=== PATIENT | female | born 1930 | race Two or more races ===

== ENCOUNTER 2019-09-03 10:01 | Inpatient (IN) | payer MEDICARE, OTHER ==
[~2019-09-03] VITALS: Ht 162.6 cm; Wt 91.8 kg
[2019-09-03] MEDS ORDERED: FentaNYL CITRATE-PF 100 MCG/2 ML VIAL ONE (10:30)
[2019-09-03] MEDS ORDERED: SODIUM CHLORIDE 0.9% 2,200 ML IV ONE (10:34)
[2019-09-03] MEDS ORDERED: 0.9% SODIUM CHLORIDE 10 ML SYRINGE IVP PRN ×2 (10:45→12:15)
[2019-09-03] MEDS ORDERED: DOXYCYCLINE HYCLATE 100 MG in DEXTROSE 5%-WATER 100 ML IV ONE (10:45)
[2019-09-03] MEDS ORDERED: VANCOMYCIN HCL 1 GM/D5% WATER 200 ML IV ONE (11:00)
[2019-09-03] MEDS ORDERED: PIPERACILLIN/TAZO 3.375 GM/D5W 50 ML IV ONE ×2 (11:00→22:00)
[2019-09-03 11:01] LABS: BASOPHILS % (AUTO) 0.2 % (0.0-2.0); EOSINOPHILS % (AUTO) 0 % (1.0-6.0); HEMATOCRIT 38.7 % (36-46); HEMOGLOBIN 12.8 g/dL (12.0-16.0); LYMPHOCYTES # (AUTO) 3.1 K/uL (1.0-4.8); LYMPHOCYTES % (AUTO) 21.3 % (22.0-44.0); MEAN CORPUSCULAR HEMOGLOBIN 29.2 pg (26.0-34.0); MEAN CORPUSCULAR VOLUME 89 fL (80-100); MONOCYTES # (AUTO) 0.6 K/uL (0.1-1.0); MONOCYTES % (AUTO) 4.1 % (2.0-9.0); NEUTROPHILS % (AUTO) 74.4 % (40.0-70.0); PLATELET COUNT (AUTO) 348 K/uL (150-450); RED BLOOD CELL COUNT(AUTO) 4.37 MIL/uL (4.00-5.20); RED CELL DISTRIBUTION WIDTH 16.1 % (11.5-14.5)
[2019-09-03 11:18] LABS: LACTIC ACID 1.5 mmol/L (0.4-2.0)
[2019-09-03] MEDS ORDERED: ASPIRIN 600 MG RECTAL SUPPOSITORY PR ONE (11:30)
[2019-09-03 11:34] LABS: INR 1.1 (0.9-1.1)
[2019-09-03 11:35] LABS: ALANINE AMINOTRANSFERASE 28 U/L (12-78); ALBUMIN 2.5 g/dL (3.4-5.0); ALKALINE PHOSPHATASE 80 U/L (46-116); ANION GAP 6 mmol/L (8-16); ASPARTATE AMINOTRANSFERASE 35 U/L (15-37); BILIRUBIN,TOTAL 0.5 mg/dL (0.1-1.0); CALCIUM, TOTAL 8.7 mg/dL (8.8-10.5); CARBON DIOXIDE 33 mmol/L (22-29); CHLORIDE 98 mmol/L (98-107); CREATINE KINASE, TOTAL ONLY 174 U/L (26-192); CREATININE 0.81 mg/dL (0.60-1.30); GLUCOSE,RANDOM 213 mg/dL (70-110); SODIUM SERUM 137 mmol/L (136-145); TOTAL PROTEIN, SERUM 7.5 g/dL (6.4-8.2); UREA NITROGEN, BLOOD 27 mg/dL (7-18)
[2019-09-03 11:37] LABS: B-TYPE NATRIURETIC PEPTIDE 608 pg/mL (0-100)
[2019-09-03 11:38] LABS: GLOMERULAR FILTR. RATE CALC > 60 mL/min (>60); POTASSIUM 2.3 mmol/L (3.5-5.1)
[2019-09-03] MEDS ORDERED: POTASSIUM CHLORIDE 20 MEQ ER TABLET PO PRN (11:45)
[2019-09-03 11:56] LABS: ABG A-A DIFF O2 390.4 mmHg (10-20.0); ABG BASE EXCESS -0.8 mmol/L (-2.0-3.0); ABG CARBOXYHEMOGLOBIN 0.6 % (0.0-1.5); ABG HCO3 22.5 mmol/L (22.0-26.0); ABG METHEMOGLOBIN 0.3 % (0.0-1.5); ABG OXYGEN SATURATION 99.4 % (95.0-98.0); ABG OXYHEMOGLOBIN 98.5 % (94.0-100.0); ABG TOTAL HEMOGLOBIN 12.6 G/dL (12.0-18.0); PO2, ARTERIAL BG 246.2 mmHg (71.0-79.0); SOURCE, BLOOD GAS ARTERIAL; TEMPERATURE, FAHRENHEIT, BG 98.6 FAHREN (96.0-98.6)
[2019-09-03 11:57] LABS: ABG PCO2 76 mmHg (35-45); ABG PH 7.176 (7.35-7.450); O2 DEVICE,BLOOD GAS VENTILATOR (ROOM AIR); PEEP,BG 8 cm H2O; SITE, BLOOD GAS LFT RADIAL; VT, ABG 450 ml
[2019-09-03 11:58] LABS: SPONTANEOUS VT, BG 444 ml
[2019-09-03] MEDS: FentaNYL CITRATE PF 500 MCG in DEXTROSE 5%-WATER 90 ML IV PRN ×2 (12:13→23:17)
[2019-09-03] MEDS ORDERED: ACETAMINOPHEN 325 MG TABLET PO PRN (12:15)
[2019-09-03] MEDS ORDERED: ONDANSETRON HCL 4 MG/2 ML VIAL IVP PRN (12:15)
[2019-09-03] MEDS ORDERED: SODIUM CHLORIDE 0.9% 250 ML IV ONE (13:23)
[2019-09-03 13:34] LABS: APPEARANCE,URINE CLOUDY (CLEAR); BILIRUBIN,URINE NEGATIVE (NEGATIVE); GLUCOSE, URINE (UA) NEGATIVE (NEGATIVE); KETONES,URINE NEGATIVE (NEGATIVE); LEUKOCYTE ESTERASE ,URINE LARGE (NEGATIVE); NITRATE,URINE NEGATIVE (NEGATIVE); OCCULT BLOOD,URINE LARGE (NEGATIVE); PROTEIN,URINE SEE CONFIRM (NEGATIVE)
[2019-09-03] MEDS: POTASSIUM CHL 10 MEQ/WATER 50 ML IV PRN ×7 (13:38→23:31)
[2019-09-03 13:40] LABS: ABG A-A DIFF O2 368.9 mmHg (10-20.0); ABG BASE EXCESS 0.4 mmol/L (-2.0-3.0); ABG HCO3 23.6 mmol/L (22.0-26.0); ABG OXYGEN CONTENT 16.7 mL/dL (15.0-23.0); ABG OXYGEN SATURATION 90.1 % (95.0-98.0); ABG OXYHEMOGLOBIN 89.2 % (94.0-100.0); ABG PCO2 62 mmHg (35-45); ABG PH 7.263 (7.35-7.450); ABG TOTAL HEMOGLOBIN 13.3 G/dL (12.0-18.0); O2 DEVICE,BLOOD GAS VENTILATOR (ROOM AIR); PEEP,BG 5 cm H2O; PO2, ARTERIAL BG 63.8 mmHg (71.0-79.0); SITE, BLOOD GAS RT RADIAL; SOURCE, BLOOD GAS ARTERIAL; TEMPERATURE, FAHRENHEIT, BG 98.3 FAHREN (96.0-98.6); VT, ABG 450 ml
[2019-09-03 13:44] LABS: BACTERIA,URINE Many /HPF (None Seen); SULFOSALICYLIC ACID,URINE 3+ (Negative)
[2019-09-03] MEDS: ACETAMINOPHEN 650 MG RECTAL SUPPOSITORY PR ONE ×2 (13:46→17:27)
[2019-09-03 14:47] LABS: D-DIMER 1.85 mg/L FEU (0.00-0.50)
[2019-09-03 14:57] LABS: C-REACTIVE PROTEIN QUANT 16.76 mg/dL (0.00-0.30)
[2019-09-03] MEDS ORDERED: SODIUM CHLORIDE 0.9% 1,000 ML IV ONE (15:45)
[2019-09-03] MEDS: SODIUM CHLORIDE 0.9% 1,000 ML IV SCH ×2 (15:45→20:01)
[2019-09-03 16:16] LABS: ABG A-A DIFF O2 585.2 mmHg (10-20.0); ABG BASE EXCESS -3.7 mmol/L (-2.0-3.0); ABG CARBOXYHEMOGLOBIN 0.4 % (0.0-1.5); ABG HCO3 20.9 mmol/L (22.0-26.0); ABG METHEMOGLOBIN 0.3 % (0.0-1.5); ABG OXYGEN SATURATION 92.8 % (95.0-98.0); ABG OXYHEMOGLOBIN 92.2 % (94.0-100.0); ABG PCO2 54 mmHg (35-45); ABG PH 7.253 (7.35-7.450); ABG TOTAL HEMOGLOBIN 12.3 G/dL (12.0-18.0); O2 DEVICE,BLOOD GAS VENTILATOR (ROOM AIR); SITE, BLOOD GAS RT RADIAL; SOURCE, BLOOD GAS ARTERIAL
[2019-09-03 16:17] LABS: PEEP,BG 12 cm H2O; SPONTANEOUS VT, BG 442 ml; VT, ABG 450 ml
[2019-09-03] MEDS: PHENYLEPHRINE 200 MG/D5%-WATER 250 ML IV PRN (16:34)
[2019-09-03] MEDS ORDERED: LIDOCAINE 2% 5 ML JELLY ONE (17:15)
[2019-09-03] MEDS ORDERED: ETOMIDATE 2 MG/ML 10 ML VIAL ONE (17:15)
[2019-09-03] MEDS ORDERED: SENN8.8S6 GT (17:51)
[2019-09-03] MEDS ORDERED: CHOL400T56 GT (17:51)
[2019-09-03] MEDS ORDERED: ATOR10TA84 GT (17:51)
[2019-09-03] MEDS ORDERED: ASPI-728 GT (17:51)
[2019-09-03] MEDS ORDERED: LOSA50TA37 GT (17:51)
[2019-09-03] MEDS ORDERED: AMLO5TAB9 GT (17:51)
[2019-09-03] MEDS: NOREPINEPHRINE 4 MG/D5%-WATER 250 ML IV PRN (18:57)
[2019-09-03] MEDS ORDERED: VANCOMYCIN HCL 750 MG in DEXTROSE 5%-WATER 250 ML IV ONE (20:00)
[2019-09-03] MEDS ORDERED: HEPARIN SODIUM 1000 UNITS/NS 500 ML ONE (21:15)
[2019-09-03] MEDS ORDERED: PROPOFOL 1000 MG/ISO-OSM 100 ML IV ONE (21:36)
[2019-09-03] MEDS ORDERED: MIDAZOLAM HCL 2 MG/2 ML VIAL ONE (21:46)
[2019-09-03] MEDS ORDERED: MIDAZOLAM HCL 2 MG/2 ML VIAL IVP ONE (22:00)
[2019-09-04] MEDS: PROPOFOL 1000 MG/ISO-OSM 100 ML IV PRN (00:22)
[2019-09-04] MEDS: POTASSIUM CHL 10 MEQ/WATER 50 ML IV PRN (00:30)
[2019-09-04] MEDS: NOREPINEPHRINE 4 MG/D5%-WATER 250 ML IV PRN ×3 (02:13→21:15)
[2019-09-04 05:42] LABS: CALCIUM, TOTAL 7.7 mg/dL (8.8-10.5); CREATININE 1.44 mg/dL (0.60-1.30); POTASSIUM 3.1 mmol/L (3.5-5.1)
[2019-09-04] MEDS: PHENYLEPHRINE 200 MG/D5%-WATER 250 ML IV PRN (06:08)
[2019-09-04] MEDS: VASOPRESSIN 40 UNITS in DEXTROSE 5%-WATER 98 ML IV PRN (07:42)
[2019-09-04] MEDS ORDERED: HYDROCODONE/ACETAMINOPHEN 5-325 MG TABLET PO PRN (09:30)
[2019-09-04] MEDS ORDERED: ACETAMINOPHEN 325 MG TABLET PO PRN (09:30)
[2019-09-04] MEDS ORDERED: ONDANSETRON HCL 4 MG/2 ML VIAL IVP PRN (09:30)
[2019-09-04] MEDS ORDERED: BISACODYL 10 MG RECTAL RECTAL SUPPOSITORY PR PRN (09:30)
[2019-09-04] MEDS ORDERED: MAGNESIUM HYDROXIDE SUSPENSION 30 ML UDCUP PO PRN (09:30)
[2019-09-04] MEDS ORDERED: MORPHINE SULFATE 2 MG/ML SYRINGE IVP PRN (09:30)
[2019-09-04] MEDS ORDERED: PIPERACILLIN/TAZO 3.375 GM/D5W 50 ML IV SCH (10:00)
[2019-09-04] MEDS ORDERED: VANCOMYCIN HCL 1 GM/D5% WATER 200 ML IV ONE (11:00)
[2019-09-04 11:16] LABS: HEMATOCRIT 39.9 % (36-46); HEMOGLOBIN 12.3 g/dL (12.0-16.0); MEAN CORPUSCULAR HEMOGLOBIN 27.9 pg (26.0-34.0); MEAN CORPUSCULAR HGB CONC 30.9 G/dL (31.0-37.0); MEAN CORPUSCULAR VOLUME 90 fL (80-100); PLATELET COUNT (AUTO) 289 K/uL (150-450); RED BLOOD CELL COUNT(AUTO) 4.41 MIL/uL (4.00-5.20); RED CELL DISTRIBUTION WIDTH 16.3 % (11.5-14.5)
[2019-09-04 11:28] LABS: CALCIUM, TOTAL 7.6 mg/dL (8.8-10.5); CREATININE 1.6 mg/dL (0.60-1.30); POTASSIUM 3.4 mmol/L (3.5-5.1)
[2019-09-04] MEDS: SODIUM CHLORIDE 0.9% 1,000 ML IV SCH (11:30)
[2019-09-04 12:09] LABS: ABG BASE EXCESS -10.5 mmol/L (-2.0-3.0); ABG CARBOXYHEMOGLOBIN 0.4 % (0.0-1.5); ABG HCO3 16.6 mmol/L (22.0-26.0); ABG METHEMOGLOBIN 0.1 % (0.0-1.5); ABG OXYGEN CONTENT 17.6 mL/dL (15.0-23.0); ABG OXYGEN SATURATION 96.3 % (95.0-98.0); ABG OXYHEMOGLOBIN 95.8 % (94.0-100.0); ABG PCO2 42 mmHg (35-45); ABG PH 7.224 (7.35-7.450); PO2, ARTERIAL BG 90.5 mmHg (71.0-79.0); SOURCE, BLOOD GAS ARTERIAL; TEMPERATURE, FAHRENHEIT, BG 99.8 FAHREN (96.0-98.6)
[2019-09-04 12:10] LABS: ALBUMIN 1.7 g/dL (3.4-5.0); BILIRUBIN,TOTAL 0.7 mg/dL (0.1-1.0); C-REACTIVE PROTEIN QUANT 21.76 mg/dL (0.00-0.30); MAGNESIUM 1.4 mg/dL (1.80-2.40); THYROID STIMULATING HORMONE 1.52 uIU/mL (0.36-3.74); TOTAL PROTEIN, SERUM 5.9 g/dL (6.4-8.2)
[2019-09-04 12:10] LABS: O2 DEVICE,BLOOD GAS VENTILATOR (ROOM AIR); PEEP,BG 12 cm H2O; SITE, BLOOD GAS ARTERIAL LINE; SPONTANEOUS VT, BG 329 ml; VT, ABG 450 ml
[2019-09-04 12:38] LABS: BAND NEUTROPHILS % (MANUAL) 28 % (0-5); LYMPHOCYTES % (MANUAL) 5 % (22-44); METAMYELOCYTES % 1 % (0-0); MONOCYTES % (MANUAL) 2 % (2-9); SEGMENTED NEUTROPHILS % 64 % (40-70)
[2019-09-04] MEDS: DOPamine HCL 400 MG/D5%-WATER 250 ML IV PRN (16:18)
[2019-09-04] MEDS: PIPERACILLIN SODIUM/TAZOBACTAM 2.25 GM in DEXTROSE 5%-WATER 50 ML IV SCH ×2 (16:46→22:30)
[2019-09-04] MEDS: HEPARIN SODIUM,PORCINE 5,000 UNITS/ML VIAL SQ SCH (17:11)
[2019-09-04 19:22] LABS: ABG A-A DIFF O2 461.2 mmHg (10-20.0); ABG CARBOXYHEMOGLOBIN 0.6 % (0.0-1.5); ABG HCO3 16.3 mmol/L (22.0-26.0); ABG METHEMOGLOBIN 0.1 % (0.0-1.5); ABG OXYGEN CONTENT 17.4 mL/dL (15.0-23.0); ABG OXYGEN SATURATION 97.7 % (95.0-98.0); ABG PCO2 41 mmHg (35-45); ABG PH 7.229 (7.35-7.450); ABG TOTAL HEMOGLOBIN 12.7 G/dL (12.0-18.0); PO2, ARTERIAL BG 101.7 mmHg (71.0-79.0); SOURCE, BLOOD GAS ARTERIAL; TEMPERATURE, FAHRENHEIT, BG 99.5 FAHREN (96.0-98.6)
[2019-09-04 19:45] LABS: LACTIC ACID 5.4 mmol/L (0.4-2.0)
[2019-09-04 19:46] LABS: O2 DEVICE,BLOOD GAS VENTILATOR (ROOM AIR); PEEP,BG 12 cm H2O; SITE, BLOOD GAS ARTERIAL LINE; VT, ABG 450 ml
[2019-09-04 19:47] LABS: SPONTANEOUS VT, BG 643 ml
[2019-09-04] MEDS ORDERED: VANCOMYCIN HCL 750 MG in DEXTROSE 5%-WATER 250 ML IV SCH (20:00)
[2019-09-05] VITALS (22 sets, daily range): BP systolic 85–160; BP diastolic 43–88
[2019-09-05] MEDS: FentaNYL CITRATE PF 500 MCG in DEXTROSE 5%-WATER 90 ML IV PRN ×2 (03:05→20:04)
[2019-09-05] MEDS: VASOPRESSIN 40 UNITS in DEXTROSE 5%-WATER 98 ML IV PRN ×2 (04:03→20:04)
[2019-09-05] MEDS: PIPERACILLIN SODIUM/TAZOBACTAM 2.25 GM in DEXTROSE 5%-WATER 50 ML IV SCH ×4 (04:04→22:24)
[2019-09-05 06:38] LABS: HEMATOCRIT 35.2 % (36-46); HEMOGLOBIN 11.6 g/dL (12.0-16.0); MEAN CORPUSCULAR HEMOGLOBIN 29.2 pg (26.0-34.0); MEAN CORPUSCULAR HGB CONC 33.1 G/dL (31.0-37.0); MEAN CORPUSCULAR VOLUME 88 fL (80-100); PLATELET COUNT (AUTO) 283 K/uL (150-450); RED BLOOD CELL COUNT(AUTO) 3.98 MIL/uL (4.00-5.20)
[2019-09-05] MEDS: PHENYLEPHRINE 200 MG/D5%-WATER 250 ML IV PRN (06:48)
[2019-09-05] MEDS: HEPARIN SODIUM,PORCINE 5,000 UNITS/ML VIAL SQ SCH ×3 (08:00→17:16)
[2019-09-05] MEDS ORDERED: VANCOMYCIN HCL 750 MG in DEXTROSE 5%-WATER 250 ML IV SCH (08:00)
[2019-09-05 08:14] LABS: ALBUMIN 1.5 g/dL (3.4-5.0); CALCIUM, TOTAL 7.3 mg/dL (8.8-10.5); CREATININE 2.12 mg/dL (0.60-1.30); MAGNESIUM 1.3 mg/dL (1.80-2.40); PHOSPHORUS 4.4 mg/dL (2.5-4.9); POTASSIUM 3.5 mmol/L (3.5-5.1); THYROID STIMULATING HORMONE 0.6 uIU/mL (0.36-3.74)
[2019-09-05 08:30] LABS: C-REACTIVE PROTEIN QUANT 31.97 mg/dL (0.00-0.30)
[2019-09-05] MEDS ORDERED: MAGNESIUM SULFATE 3 GM in DEXTROSE 5%-WATER 100 ML IV ONE (09:00)
[2019-09-05] MEDS ORDERED: VANCOMYCIN HCL 1 GM/D5% WATER 200 ML IV PRN (09:45)
[2019-09-05] MEDS: SODIUM BICARBONATE 75 MEQ in SODIUM CHLORIDE 0.45% 1,000 ML IV SCH (10:23)
[2019-09-05 11:33] LABS: BAND NEUTROPHILS % (MANUAL) 25 % (0-5); LYMPHOCYTES % (MANUAL) 4 % (22-44); MONOCYTES % (MANUAL) 3 % (2-9); SEGMENTED NEUTROPHILS % 68 % (40-70)
[2019-09-05 12:14] LABS: ABG A-A DIFF O2 346.9 mmHg (10-20.0); ABG CARBOXYHEMOGLOBIN 0.8 % (0.0-1.5); ABG HCO3 17.1 mmol/L (22.0-26.0); ABG METHEMOGLOBIN 0.3 % (0.0-1.5); ABG OXYGEN CONTENT 16.1 mL/dL (15.0-23.0); ABG OXYGEN SATURATION 96.4 % (95.0-98.0); ABG OXYHEMOGLOBIN 95.3 % (94.0-100.0); ABG PCO2 36 mmHg (35-45); ABG PH 7.285 (7.35-7.450); PO2, ARTERIAL BG 77.8 mmHg (71.0-79.0); SOURCE, BLOOD GAS ARTERIAL; TEMPERATURE, FAHRENHEIT, BG 98.5 FAHREN (96.0-98.6)
[2019-09-05 12:15] LABS: O2 DEVICE,BLOOD GAS VENTILATOR (ROOM AIR); PEEP,BG 10 cm H2O; SITE, BLOOD GAS ARTERIAL LINE; VT, ABG 450 ml
[2019-09-05] MEDS: DOPamine HCL 400 MG/D5%-WATER 250 ML IV PRN (20:03)
[2019-09-05] MEDS: NOREPINEPHRINE 4 MG/D5%-WATER 250 ML IV PRN (22:59)
[2019-09-06] VITALS (24 sets, daily range): BP systolic 74–162; BP diastolic 42–72
[2019-09-06] MEDS: HEPARIN SODIUM,PORCINE 5,000 UNITS/ML VIAL SQ SCH ×3 (00:12→16:10)
[2019-09-06] MEDS: DOPamine HCL 400 MG/D5%-WATER 250 ML IV PRN ×2 (00:52→16:30)
[2019-09-06] MEDS ORDERED: LORazepam 2 MG/ML VIAL IVP ONE (01:15)
[2019-09-06] MEDS ORDERED: LORazepam 2 MG/ML VIAL ONE (01:16)
[2019-09-06] MEDS: FentaNYL CITRATE PF 500 MCG in DEXTROSE 5%-WATER 90 ML IV PRN ×3 (02:39→22:45)
[2019-09-06] MEDS: NOREPINEPHRINE 4 MG/D5%-WATER 250 ML IV PRN ×6 (02:40→22:34)
[2019-09-06] MEDS: SODIUM BICARBONATE 75 MEQ in SODIUM CHLORIDE 0.45% 1,000 ML IV SCH ×2 (03:53→19:20)
[2019-09-06] MEDS: PIPERACILLIN SODIUM/TAZOBACTAM 2.25 GM in DEXTROSE 5%-WATER 50 ML IV SCH ×4 (03:53→21:56)
[2019-09-06] MEDS: PHENYLEPHRINE 200 MG/D5%-WATER 250 ML IV PRN ×2 (06:30→18:43)
[2019-09-06 06:54] LABS: BASOPHILS % (AUTO) 0.2 % (0.0-2.0); EOSINOPHILS % (AUTO) 0 % (1.0-6.0); HEMATOCRIT 33.4 % (36-46); HEMOGLOBIN 11.1 g/dL (12.0-16.0); LYMPHOCYTES # (AUTO) 0.7 K/uL (1.0-4.8); LYMPHOCYTES % (AUTO) 3.7 % (22.0-44.0); MEAN CORPUSCULAR HEMOGLOBIN 29.1 pg (26.0-34.0); MEAN CORPUSCULAR HGB CONC 33.2 G/dL (31.0-37.0); MEAN CORPUSCULAR VOLUME 88 fL (80-100); MONOCYTES # (AUTO) 0.4 K/uL (0.1-1.0); MONOCYTES % (AUTO) 2.2 % (2.0-9.0); NEUTROPHILS # (AUTO) 16.9 K/uL (1.8-7.7); PLATELET COUNT (AUTO) 253 K/uL (150-450); RED BLOOD CELL COUNT(AUTO) 3.81 MIL/uL (4.00-5.20); RED CELL DISTRIBUTION WIDTH 15.9 % (11.5-14.5)
[2019-09-06 07:07] LABS: NEUTROPHILS % (AUTO) 93.9 % (40.0-70.0)
[2019-09-06 10:52] LABS: ABG A-A DIFF O2 426.6 mmHg (10-20.0); ABG BASE EXCESS -8.2 mmol/L (-2.0-3.0); ABG CARBOXYHEMOGLOBIN 0.4 % (0.0-1.5); ABG HCO3 18.3 mmol/L (22.0-26.0); ABG METHEMOGLOBIN 0.1 % (0.0-1.5); ABG OXYGEN CONTENT 15.8 mL/dL (15.0-23.0); ABG OXYGEN SATURATION 94.6 % (95.0-98.0); ABG OXYHEMOGLOBIN 94.1 % (94.0-100.0); ABG PCO2 38 mmHg (35-45); ABG PH 7.303 (7.35-7.450); ABG TOTAL HEMOGLOBIN 11.9 G/dL (12.0-18.0); PO2, ARTERIAL BG 69.4 mmHg (71.0-79.0); SOURCE, BLOOD GAS ARTERIAL; TEMPERATURE, FAHRENHEIT, BG 97.6 FAHREN (96.0-98.6)
[2019-09-06 10:53] LABS: O2 DEVICE,BLOOD GAS VENTILATOR (ROOM AIR); SITE, BLOOD GAS ARTERIAL LINE; VT, ABG 450 ml
[2019-09-06 10:54] LABS: PEEP,BG 10 cm H2O; SPONTANEOUS VT, BG 436 ml
[2019-09-06 11:53] LABS: CREATININE,URINE RANDOM 31.5 mg/dL (30.0-125.0); SODIUM,URINE RANDOM 48 mmol/l (20-110); UREA NITROGEN,URINE RANDOM 143 mg/dL (350-1000)
[2019-09-06 11:56] LABS: ALBUMIN 1.2 g/dL (3.4-5.0); BILIRUBIN,TOTAL 1.1 mg/dL (0.1-1.0); CALCIUM, TOTAL 6.7 mg/dL (8.8-10.5); CREATININE 2.44 mg/dL (0.60-1.30); POTASSIUM 3.4 mmol/L (3.5-5.1); TOTAL PROTEIN, SERUM 5.1 g/dL (6.4-8.2); VANCOMYCIN,RANDOM 16.7 mcg/mL (25.0-50.0)
[2019-09-06 12:07] LABS: APPEARANCE,URINE TURBID (CLEAR); GLUCOSE, URINE (UA) 100 mg/dL (NEGATIVE); KETONES,URINE NEGATIVE (NEGATIVE); LEUKOCYTE ESTERASE ,URINE LARGE (NEGATIVE); NITRATE,URINE NEGATIVE (NEGATIVE); OCCULT BLOOD,URINE MODERATE (NEGATIVE); PH,URINE 8.5 (5.0-8.0); PROTEIN,URINE SEE CONFIRM (NEGATIVE)
[2019-09-06 12:12] LABS: BILIRUBIN,URINE PRELIM. POSITIVE (NEGATIVE)
[2019-09-06 12:43] LABS: C-REACTIVE PROTEIN QUANT 25.46 mg/dL (0.00-0.30)
[2019-09-06] MEDS ORDERED: VANCOMYCIN HCL 1 GM/D5% WATER 200 ML IV ONE (13:00)
[2019-09-06 13:46] LABS: BACTERIA,URINE Moderate /HPF (None Seen); SULFOSALICYLIC ACID,URINE 3+ (Negative)
[2019-09-06 13:47] LABS: RENAL EPITHELIAL CELLS,URINE Few /LPF (None Seen); TRIPLE PHOSPHATE CRYSTAL,UR Moderate /LPF (None Seen)
[2019-09-06] MEDS ORDERED: SODIUM CHLORIDE 3% IV ONE (15:00)
[2019-09-06 19:40] LABS: CALCIUM, TOTAL 6.4 mg/dL (8.8-10.5); CREATININE 2.42 mg/dL (0.60-1.30); POTASSIUM 3.7 mmol/L (3.5-5.1)
[2019-09-07] VITALS (26 sets, daily range): BP systolic 96–146; BP diastolic 44–55
[2019-09-07] MEDS: DOPamine HCL 400 MG/D5%-WATER 250 ML IV PRN ×2 (01:32→11:53)
[2019-09-07] MEDS: HEPARIN SODIUM,PORCINE 5,000 UNITS/ML VIAL SQ SCH ×3 (01:32→15:47)
[2019-09-07] MEDS: NOREPINEPHRINE 4 MG/D5%-WATER 250 ML IV PRN ×4 (02:51→23:36)
[2019-09-07] MEDS: PIPERACILLIN SODIUM/TAZOBACTAM 2.25 GM in DEXTROSE 5%-WATER 50 ML IV SCH ×4 (03:43→21:13)
[2019-09-07] MEDS: PHENYLEPHRINE 200 MG/D5%-WATER 250 ML IV PRN ×2 (06:31→18:34)
[2019-09-07] MEDS: VASOPRESSIN 40 UNITS in DEXTROSE 5%-WATER 98 ML IV PRN (06:32)
[2019-09-07 06:38] LABS: BASOPHILS % (AUTO) 0.2 % (0.0-2.0); EOSINOPHILS % (AUTO) 0 % (1.0-6.0); HEMATOCRIT 30.9 % (36-46); HEMOGLOBIN 10.5 g/dL (12.0-16.0); LYMPHOCYTES # (AUTO) 0.4 K/uL (1.0-4.8); MEAN CORPUSCULAR HEMOGLOBIN 29.1 pg (26.0-34.0); MEAN CORPUSCULAR VOLUME 86 fL (80-100); MONOCYTES # (AUTO) 0.1 K/uL (0.1-1.0); MONOCYTES % (AUTO) 0.7 % (2.0-9.0); NEUTROPHILS # (AUTO) 18.1 K/uL (1.8-7.7); PLATELET COUNT (AUTO) 181 K/uL (150-450); RED BLOOD CELL COUNT(AUTO) 3.62 MIL/uL (4.00-5.20); RED CELL DISTRIBUTION WIDTH 16.6 % (11.5-14.5)
[2019-09-07 06:47] LABS: NEUTROPHILS % (AUTO) 97.1 % (40.0-70.0)
[2019-09-07 08:11] LABS: ALBUMIN 1.1 g/dL (3.4-5.0); BILIRUBIN,TOTAL 1.1 mg/dL (0.1-1.0); C-REACTIVE PROTEIN QUANT 21.79 mg/dL (0.00-0.30); CALCIUM, TOTAL 6.5 mg/dL (8.8-10.5); CREATININE 2.6 mg/dL (0.60-1.30); MAGNESIUM 1.7 mg/dL (1.80-2.40); PHOSPHORUS 4.5 mg/dL (2.5-4.9); POTASSIUM 3.8 mmol/L (3.5-5.1)
[2019-09-07 08:41] LABS: ABG A-A DIFF O2 440.7 mmHg (10-20.0); ABG BASE EXCESS -8.1 mmol/L (-2.0-3.0); ABG CARBOXYHEMOGLOBIN 0.4 % (0.0-1.5); ABG HCO3 18.2 mmol/L (22.0-26.0); ABG OXYGEN CONTENT 14.4 mL/dL (15.0-23.0); ABG OXYHEMOGLOBIN 87.6 % (94.0-100.0); ABG PCO2 39 mmHg (35-45); ABG PH 7.296 (7.35-7.450); ABG TOTAL HEMOGLOBIN 11.7 G/dL (12.0-18.0); PO2, ARTERIAL BG 53.2 mmHg (71.0-79.0); SOURCE, BLOOD GAS ARTERIAL; TEMPERATURE, FAHRENHEIT, BG 98.5 FAHREN (96.0-98.6)
[2019-09-07 08:43] LABS: SITE, BLOOD GAS ARTERIAL LINE
[2019-09-07 08:44] LABS: O2 DEVICE,BLOOD GAS VENTILATOR (ROOM AIR); PEEP,BG 10 cm H2O; SPONTANEOUS VT, BG 430 ml; VT, ABG 450 ml
[2019-09-07] MEDS ORDERED: SODIUM CHLORIDE 3% 500 ML IV ONE ×3 (09:15→23:15)
[2019-09-07] MEDS ORDERED: SODIUM CHLORIDE 3% 500 ML IV SCH (09:15)
[2019-09-07] MEDS: SODIUM BICARBONATE 75 MEQ in SODIUM CHLORIDE 0.45% 1,000 ML IV SCH (10:58)
[2019-09-07] MEDS: PROPOFOL 1000 MG/ISO-OSM 100 ML IV PRN ×2 (11:00→17:44)
[2019-09-07 15:06] LABS: CALCIUM, TOTAL 6.3 mg/dL (8.8-10.5); CREATININE 2.64 mg/dL (0.60-1.30); POTASSIUM 4.2 mmol/L (3.5-5.1)
[2019-09-07 17:29] LABS: GLUCOMETER DEV NAME(LOC) AHU.; GLUCOSE,POINT OF CARE 138 MG/DL (70-110)
[2019-09-07] MEDS: FentaNYL CITRATE PF 500 MCG in DEXTROSE 5%-WATER 90 ML IV PRN ×2 (17:42→19:22)
[2019-09-07 18:51] LABS: CALCIUM, TOTAL 6.1 mg/dL (8.8-10.5); CREATININE 2.68 mg/dL (0.60-1.30); POTASSIUM 4.1 mmol/L (3.5-5.1)
[2019-09-07 22:54] LABS: CALCIUM, TOTAL 6.2 mg/dL (8.8-10.5); CREATININE 2.66 mg/dL (0.60-1.30); POTASSIUM 4.4 mmol/L (3.5-5.1)
[2019-09-08] VITALS (27 sets, daily range): BP systolic 42–113; BP diastolic 25–48
[2019-09-08] MEDS: SODIUM BICARBONATE 75 MEQ in SODIUM CHLORIDE 0.45% 1,000 ML IV SCH (00:09)
[2019-09-08] MEDS: HEPARIN SODIUM,PORCINE 5,000 UNITS/ML VIAL SQ SCH ×3 (00:10→17:46)
[2019-09-08] MEDS: NOREPINEPHRINE 4 MG/D5%-WATER 250 ML IV PRN ×3 (03:24→21:37)
[2019-09-08] MEDS: PIPERACILLIN SODIUM/TAZOBACTAM 2.25 GM in DEXTROSE 5%-WATER 50 ML IV SCH (03:25)
[2019-09-08] MEDS: PHENYLEPHRINE 200 MG/D5%-WATER 250 ML IV PRN ×2 (05:27→17:13)
[2019-09-08 05:40] LABS: BASOPHILS % (AUTO) 0.6 % (0.0-2.0); EOSINOPHILS % (AUTO) 0.6 % (1.0-6.0); HEMOGLOBIN 10.6 g/dL (12.0-16.0); LYMPHOCYTES # (AUTO) 0.2 K/uL (1.0-4.8); LYMPHOCYTES % (AUTO) 0.9 % (22.0-44.0); MEAN CORPUSCULAR HEMOGLOBIN 28.6 pg (26.0-34.0); MEAN CORPUSCULAR VOLUME 87 fL (80-100); MONOCYTES # (AUTO) 0.1 K/uL (0.1-1.0); MONOCYTES % (AUTO) 0.3 % (2.0-9.0); NEUTROPHILS # (AUTO) 23.1 K/uL (1.8-7.7); PLATELET COUNT (AUTO) 145 K/uL (150-450); RED CELL DISTRIBUTION WIDTH 16.6 % (11.5-14.5)
[2019-09-08 06:07] LABS: NEUTROPHILS % (AUTO) 97.6 % (40.0-70.0)
[2019-09-08 06:31] LABS: ALBUMIN 0.9 g/dL (3.4-5.0); C-REACTIVE PROTEIN QUANT 19.08 mg/dL (0.00-0.30); CREATININE 2.69 mg/dL (0.60-1.30); POTASSIUM 3.7 mmol/L (3.5-5.1); TOTAL PROTEIN, SERUM 4.6 g/dL (6.4-8.2); VANCOMYCIN,RANDOM 20.5 mcg/mL (25.0-50.0)
[2019-09-08 06:35] LABS: CALCIUM, TOTAL 5.8 mg/dL (8.8-10.5)
[2019-09-08] MEDS ORDERED: CALCIUM GLUCONATE 100 MG/ML 10 ML IVP ONE ×2 (08:00→12:30)
[2019-09-08] MEDS ORDERED: SODIUM CHLORIDE 3% 500 ML IV ONE (08:30)
[2019-09-08 12:07] LABS: ALBUMIN 0.9 g/dL (3.4-5.0); BILIRUBIN,TOTAL 0.9 mg/dL (0.1-1.0); CREATININE 2.66 mg/dL (0.60-1.30); POTASSIUM 3.8 mmol/L (3.5-5.1); TOTAL PROTEIN, SERUM 4.6 g/dL (6.4-8.2)
[2019-09-08 12:12] LABS: CALCIUM, TOTAL 5.8 mg/dL (8.8-10.5)
[2019-09-08] MEDS ORDERED: VANCOMYCIN HCL 750 MG in DEXTROSE 5%-WATER 250 ML IV ONE (13:00)
[2019-09-08] MEDS ORDERED: PIPERACILLIN SODIUM/TAZOBACTAM 2.25 GM in DEXTROSE 5%-WATER 50 ML IV SCH (17:00)
[2019-09-08] MEDS: DOPamine HCL 400 MG/D5%-WATER 250 ML IV PRN ×2 (17:06→21:38)
[2019-09-08] MEDS ORDERED: SODIUM CHLORIDE 3% 500 ML IV SCH (17:45)
[2019-09-08 19:45] LABS: ABG A-A DIFF O2 626.5 mmHg (10-20.0); ABG BASE EXCESS -13.4 mmol/L (-2.0-3.0); ABG CARBOXYHEMOGLOBIN 0.5 % (0.0-1.5); ABG HCO3 13.5 mmol/L (22.0-26.0); ABG METHEMOGLOBIN 0.1 % (0.0-1.5); ABG OXYHEMOGLOBIN 65.4 % (94.0-100.0); ABG PCO2 54 mmHg (35-45); ABG PH 7.098 (7.35-7.450); SOURCE, BLOOD GAS ARTERIAL
[2019-09-08 19:46] LABS: ABG OXYGEN SATURATION 65.8 % (95.0-98.0); O2 DEVICE,BLOOD GAS VENTILATOR (ROOM AIR); PO2, ARTERIAL BG 35.2 mmHg (71.0-79.0); SITE, BLOOD GAS ARTERIAL LINE; VT, ABG 450 ml
[2019-09-08 19:47] LABS: PEEP,BG 12 cm H2O; SPONTANEOUS VT, BG 360 ml
[2019-09-08] MEDS ORDERED: SODIUM BICARBONATE [ADULT] 8.4% 50 MEQ/50 ML SYRINGE IVP ONE ×2 (20:16→22:00)
[2019-09-08] MEDS: PROPOFOL 1000 MG/ISO-OSM 100 ML IV PRN (21:00)
[2019-09-08] MEDS: FentaNYL CITRATE PF 500 MCG in DEXTROSE 5%-WATER 90 ML IV PRN (21:39)
[2019-09-08] MEDS: VASOPRESSIN 40 UNITS in DEXTROSE 5%-WATER 98 ML IV PRN (23:24)
[2019-09-09] VITALS: BP 57/28
[2019-09-09 01:00] VITALS: BP 53/27
[2019-09-09] MEDS ORDERED: DiphenhydrAMINE HCL 50 MG/ML VIAL IVP PRN (01:30)
[2019-09-09] MEDS ORDERED: ONDANSETRON HCL 4 MG/2 ML VIAL IVP PRN ×2 (01:30→02:30)
[2019-09-09] MEDS ORDERED: MORPHINE SULFATE 100 MG/NS/PF 100 ML IV PRN (01:30)
[2019-09-09 02:01] VITALS: BP 36/22
[2019-09-09 02:24] VITALS: BP 38/20
[2019-09-09] MEDS ORDERED: LORazepam 2 MG/ML VIAL IVP PRN (02:30)
[2019-09-09] MEDS ORDERED: MORPHINE SULFATE 4 MG/ML SYRINGE IVP PRN (02:30)
[2019-09-10] MEDS ORDERED: VANCOMYCIN HCL 750 MG in DEXTROSE 5%-WATER 250 ML IV SCH (08:00)
== END 2019-09-09 03:05 | disposition expired | DRG 870 ==
LOC: EMS 10:02 → ICUN 09-04 09:20 → UNDOADMIN 09-04 15:59
PROVIDERS: ADMIT Hospitalist; ATTEND Hospitalist
PROC: 5A1955Z Respiratory Ventilation, Greater than 96 Consecutive Hours (ICD-10-PCS; principal; 2019-09-04)
PROC: 0BH17EZ Insertion of Endotracheal Airway into Trachea, Via Natural or Artificial Opening (ICD-10-PCS; 2019-09-04)
PROC: 5A09357 Assistance with Respiratory Ventilation, Less than 24 Consecutive Hours, Continuous Positive Airway Pressure (ICD-10-PCS; 2019-09-06)
DX: A41.89 Other specified sepsis (principal); U07.1 COVID-19; J96.01 Acute respiratory failure with hypoxia; E43 Unspecified severe protein-calorie malnutrition; I21.4 Non-ST elevation (NSTEMI) myocardial infarction; R65.21 Severe sepsis with septic shock; J12.89 Other viral pneumonia; E87.1 Hypo-osmolality and hyponatremia; N39.0 Urinary tract infection, site not specified; E87.2 Acidosis; N17.9 Acute kidney failure, unspecified; E86.0 Dehydration; F03.90 Unspecified dementia, unspecified severity, without behavioral disturbance, psychotic disturbance, mood disturbance, and anxiety; Z68.34 Body mass index [BMI] 34.0-34.9, adult; Z66 Do not resuscitate; Z86.73 Personal history of transient ischemic attack (TIA), and cerebral infarction without residual deficits; Z93.1 Gastrostomy status; I10 Essential (primary) hypertension; K52.9 Noninfective gastroenteritis and colitis, unspecified; R13.10 Dysphagia, unspecified; Z51.5 Encounter for palliative care; Z90.49 Acquired absence of other specified parts of digestive tract; Z99.81 Dependence on supplemental oxygen; Z74.01 Bed confinement status
CPT/HCPCS: 36555; 36600; 71250; 72192; 74150; 82570; 82728; 82805; 83605; 83615; 83735; 84100; 84132; 84145; 84295; 84300; 84443; 84540; 85379; 85384; 86140; 87040; 87086; 93005; 93306; 93970; 94002; 94003; G0378; J0610; J1265; J1644; J2060; J2250; J2270; J2370; J2543; J2704; J3010; J3370; J3475; J3480; J3490; J7030; J7050; J7060; 36415-L1; 36415-TC; 71045-TC; 80202-TC; 82803-TC; U0003-CS